=== PATIENT | female | born 1980 | race American Indian/Alaskan Native ===

== ENCOUNTER 2020-02-06 08:56 | Emergency (ER) | payer MEDICARE ==
[2020-02-06] MEDS ORDERED: LIDOCAINE VISCOUS 2% 15 ML ORAL LIQD MM NR (09:30)
[2020-02-06] MEDS ORDERED: SODIUM CHLORIDE 0.9% 1000 ML 1,000 ML ONE (09:52)
[2020-02-06] MEDS ORDERED: SODIUM CHLORIDE 0.9% 1000 ML 1,000 ML IV ONE (09:54)
--- NOTE | 2020-02-06 10:01 | Emergency Department Report ---
ED General Adult HPI - General Chief complaint: GI Bleed Stated complaint: MOUTH PAIN/HEADACHES Time Seen by Provider: 02/06/20 09:10 Source: patient, EMS Mode of arrival: Wheelchair Limitations: Physical Limitation - History of Present Illness Initial comments: This is a pleasant 39-year-old female who presents the emergency department chief complaint of dental pain and irritation to the roof of her mouth that started 3 days ago. She also reports she had some bright red blood when she wiped and had a bowel movement this morning. She denies any pain in her abdomen, fever, chills, night sweats, dizziness, blurry vision, chest pain, shortness of breath, weakness, melena, hematemesis or any other associated symptoms. She denies any blood thinner use. She has a history of hypertension and polymyositis which has left her wheelchair-bound. She receives Rituxan infusions monthly and was supposed to get one today but due to her symptoms she came to the ER instead. She reports she also takes prednisone, losartan and Norvasc. - Related Data Previous Rx's Medication Instructions Recorded Last Taken Type Chlorhexidine Mouthwash [Peridex] 15 ml MM BID #1 bottle 02/06/20 Unknown Rx Nystas/Diphen/Xyl Visc/Mylanta 30 ml MM Q4H PRN #120 ml 02/06/20 Unknown Rx [Magic Mouthwash] Allergies Allergy/AdvReac Type Severity Reaction Status Date / Time No Known Allergies Allergy Unverified 02/06/20 08:57 ED Review of Systems ROS: Stated complaint: MOUTH PAIN/HEADACHES Other details as noted in HPI Comment: All other systems reviewed and negative Constitutional: denies: chills, fever Eyes: denies: eye pain, eye discharge, vision change ENT: as per HPI, dental pain. denies: ear pain, throat pain Respiratory: denies: cough, shortness of breath, wheezing Cardiovascular: denies: chest pain, palpitations Endocrine: no symptoms reported Gastrointestinal: as per HPI, constipation, hematochezia. denies: abdominal pain, nausea, diarrhea, hematemesis, melena Genitourinary: denies: urgency, dysuria, discharge Musculoskeletal: denies: back pain, joint swelling, arthralgia Skin: denies: rash, lesions Neurological: denies: headache, weakness, paresthesias Psychiatric: denies: anxiety, depression Hematological/Lymphatic: denies: easy bleeding, easy bruising ED Past Medical Hx - Past Medical History Previous Medical History?: Yes Hx Hypertension: Yes Additional medical history: Polymyositis. extreme weakness- wheelchair bound - Surgical History Past Surgical History?: Yes Additional Surgical History: femur surgery - Family History Family history: no significant - Social History Smoking Status: Never Smoker Substance Use Type: None - Medications Home Medications: Home Medications Medication Instructions Recorded Confirmed Last Taken Type Chlorhexidine Mouthwash [Peridex] 15 ml MM BID #1 bottle 02/06/20 Unknown Rx Nystas/Diphen/Xyl Visc/Mylanta 30 ml MM Q4H PRN #120 ml 02/06/20 Unknown Rx [Magic Mouthwash] ED Physical Exam - General Limitations: Physical Limitation General appearance: alert, in no apparent distress - Head Head exam: Present: atraumatic, normocephalic - Eye Eye exam: Present: normal appearance, PERRL, EOMI Pupils: Present: normal accommodation - ENT ENT exam: Present: normal exam, mucous membranes moist, TM's normal bilaterally, other (erythema to the roof of mouth, no ulceration or edema, no abscess, trismus, peritonsillar or retropharyngeal bulging, no dysphonia or drooling). Absent: normal orophraynx - Neck Neck exam: Present: normal inspection, full ROM. Absent: tenderness, meningismus - Respiratory Respiratory exam: Present: normal lung sounds bilaterally. Absent: respiratory distress, wheezes, rales, rhonchi, stridor - Cardiovascular Cardiovascular Exam: Present: regular rate, normal rhythm, normal heart sounds. Absent: systolic murmur, diastolic murmur, rubs, gallop - GI/Abdominal GI/Abdominal exam: Present: soft, normal bowel sounds. Absent: distended, tenderness, guarding, rebound, rigid - Rectal Rectal exam: Present: heme (+) stool, other (Rectal exam chaperoned by DIMPLE Hahn) - Extremities Exam Extremities exam: Present: normal inspection, full ROM. Absent: tenderness, pedal edema, calf tenderness - Back Exam Back exam: Present: normal inspection, full ROM. Absent: tenderness - Neurological Exam Neurological exam: Present: alert, oriented X3, other (The patient has generalized weakness in the arms and legs from her chronic polymyositis. She is at her baseline per patient.) - Psychiatric Psychiatric exam: Present: normal affect, normal mood - Skin Skin exam: Present: warm, dry, intact, normal color. Absent: rash ED Course Vital Signs 02/06/20 02/06/20 08:57 09:31 Temperature 98.4 F Pulse Rate 95 H Respiratory 16 16 Rate Blood Pressure 166/96 O2 Sat by Pulse 99 98 Oximetry - Reevaluation(s) Reevaluation #1: 02/06/20 10:07 Patient is hemodynamically stable and in no acute distress. Rectal exam showed no obvious external hemorrhoids or fissures but there was heme positive stool. Her abdominal exam was benign. She had normal vitals and is nontoxic. She was given viscous lidocaine which helped with her mouth pain. ED Medical Decision Making - Lab Data Result diagrams: 02/06/20 10:00 02/06/20 10:00 Lab Results 02/06/20 02/06/20 02/06/20 Range/Units 10:00 10:00 10:00 WBC 7.0 (4.5-11.0) K/mm3 RBC 3.80 (3.65-5.03) M/mm3 Hgb 10.5 (10.1-14.3) gm/dl Hct 32.4 (30.3-42.9) % MCV 85 (79-97) fl MCH 28 (28-32) pg MCHC 32 (30-34) % RDW 16.2 H (13.2-15.2) % Plt Count 291 (140-440) K/mm3 Lymph % (Auto) 25.3 (13.4-35.0) % Swain % (Auto) 6.3 (0.0-7.3) % Eos % (Auto) 1.3 (0.0-4.3) % Baso % (Auto) 0.4 (0.0-1.8) % Lymph # (Auto) 1.8 (1.2-5.4) K/mm3 Swain # (Auto) 0.4 (0.0-0.8) K/mm3 Eos # (Auto) 0.1 (0.0-0.4) K/mm3 Baso # (Auto) 0.0 (0.0-0.1) K/mm3 Seg Neutrophils % 66.7 (40.0-70.0) % Seg Neutrophils # 4.7 (1.8-7.7) K/mm3 PT 12.7 (12.2-14.9) Sec. INR 0.96 (0.87-1.13) APTT 24.6 (24.2-36.6) Sec. Sodium 138 (137-145) mmol/L Potassium 4.4 (3.6-5.0) mmol/L Chloride 103.2 (98-107) mmol/L Carbon Dioxide 27 (22-30) mmol/L Anion Gap 12 mmol/L BUN 4 L (7-17) mg/dL Creatinine < 0.2 L (0.6-1.2) mg/dL Estimated GFR > 60 ml/min BUN/Creatinine Ratio 20 % Glucose 70 (65-100) mg/dL Calcium 8.5 (8.4-10.2) mg/dL Total Bilirubin 0.20 (0.1-1.2) mg/dL AST 74 H (5-40) units/L ALT 52 (7-56) units/L Alkaline Phosphatase 38 (35-129) units/L Total Protein 7.6 (6.3-8.2) g/dL Albumin 3.5 L (3.9-5) g/dL Albumin/Globulin Ratio 0.9 % Lipase 20 (13-60) units/L HCG, Qual (Negative) 02/06/20 Range/Units 10:00 WBC (4.5-11.0) K/mm3 RBC (3.65-5.03) M/mm3 Hgb (10.1-14.3) gm/dl Hct (30.3-42.9) % MCV (79-97) fl MCH (28-32) pg MCHC (30-34) % RDW (13.2-15.2) % Plt Count (140-440) K/mm3 Lymph % (Auto) (13.4-35.0) % Swain % (Auto) (0.0-7.3) % Eos % (Auto) (0.0-4.3) % Baso % (Auto) (0.0-1.8) % Lymph # (Auto) (1.2-5.4) K/mm3 Swain # (Auto) (0.0-0.8) K/mm3 Eos # (Auto) (0.0-0.4) K/mm3 Baso # (Auto) (0.0-0.1) K/mm3 Seg Neutrophils % (40.0-70.0) % Seg Neutrophils # (1.8-7.7) K/mm3 PT (12.2-14.9) Sec. INR (0.87-1.13) APTT (24.2-36.6) Sec. Sodium (137-145) mmol/L Potassium (3.6-5.0) mmol/L Chloride (98-107) mmol/L Carbon Dioxide (22-30) mmol/L Anion Gap mmol/L BUN (7-17) mg/dL Creatinine (0.6-1.2) mg/dL Estimated GFR ml/min BUN/Creatinine Ratio % Glucose (65-100) mg/dL Calcium (8.4-10.2) mg/dL Total Bilirubin (0.1-1.2) mg/dL AST (5-40) units/L ALT (7-56) units/L Alkaline Phosphatase (35-129) units/L Total Protein (6.3-8.2) g/dL Albumin (3.9-5) g/dL Albumin/Globulin Ratio % Lipase (13-60) units/L HCG, Qual Negative (Negative) - Medical Decision Making On reevaluation patient is feeling much better. Headache is improving. Vital signs have remained stable. Labs are unremarkable and H&H is stable BUN is nonelevated. I suspect this is likely a nonlethal source of GI bleeding. Patient was given strict return precautions for any change or worsening symptoms such as heavy bleeding, severe abdominal pain to return the emerge department really. Her abdominal exam was benign. As far as her mouth pain she did have some mucositis and I will treat her with topical lidocaine and an antibiotic rinse recommended follow-up with her doctor and return to the ER with any change or worsening symptoms. She verbalized understand the diagnosis, treatment plan and follow-up instructions and all of her questions were answered. 02/06/20 11:36 - Differential Diagnosis Mucositis, dental infection, diverticular bleed, colitis Critical care attestation.: If time is entered above; I have spent that time in minutes in the direct care of this critically ill patient, excluding procedure time. ED Disposition Clinical Impression: GI bleeding Qualifiers: GI bleed type/associated pathology: unspecified gastrointestinal hemorrhage type Qualified Code(s): K92.2 - Gastrointestinal hemorrhage, unspecified Disposition: TO HOME OR SELFCARE Is pt being admited?: No Condition: Stable Instructions: Gastrointestinal Bleeding Prescriptions: Nystas/Diphen/Xyl Visc/Mylanta [Magic Mouthwash] 30 ml MM Q4H PRN #120 ml PRN Reason: Pain , Severe (7-10) Chlorhexidine Mouthwash [Peridex] 15 ml MM BID #1 bottle Referrals: PRIMARY CARE, [Primary Care Provider] - 3-5 Days [facility] [Provider Group] - 3-5 Days Time of Disposition: 11:40
[2020-02-06 10:42] LABS: Basophils % (Auto) 0.4 % (0.0-1.8); Eosinophils # (Auto) 0.1 K/mm3 (0.0-0.4); Eosinophils % (Auto) 1.3 % (0.0-4.3); Hematocrit 32.4 % (30.3-42.9); Hemoglobin 10.5 gm/dl (10.1-14.3); Lymphocytes # (Auto) 1.8 K/mm3 (1.2-5.4); Lymphocytes % (Auto) 25.3 % (13.4-35.0); Mean Corpuscular HGB Conc 32 % (30-34); Mean Corpuscular Volume 85 fl (79-97); Monocytes # (Auto) 0.4 K/mm3 (0.0-0.8); Monocytes % (Auto) 6.3 % (0.0-7.3); Platelet Count 291 K/mm3 (140-440); Red Cell Distribution Width 16.2 % (13.2-15.2)
[2020-02-06 10:57] LABS: INR 0.96 (0.87-1.13); Partial Thromboplastin Time 24.6 Sec. (24.2-36.6)
[2020-02-06] MEDS ORDERED: METOCLOPRAMIDE 10 MG/2 ML INJ IV ONE (11:03)
[2020-02-06] MEDS ORDERED: diphenhydrAMINE 50 MG/ML VIAL IV ONE (11:03)
[2020-02-06 11:05] LABS: Alanine Aminotransferase 52 units/L (7-56); Albumin 3.5 g/dL (3.9-5); Blood Urea Nitrogen 4 mg/dL (7-17); Calcium 8.5 mg/dL (8.4-10.2); Hemolysis Index 304
[2020-02-06 11:15] LABS: BUN/Creatinine Ratio 20
[2020-02-06 15:17] VITALS: BP 150/73
== END 2020-02-06 15:13 | disposition home or self-care (01) ==
LOC: ED 08:56
DX: K92.2 Gastrointestinal hemorrhage, unspecified (principal); I10 Essential (primary) hypertension; Z98.890 Other specified postprocedural states; Z79.899 Other long term (current) drug therapy
CPT/HCPCS: 36415; 80053; 83690; 84703; 85025; 85610; 85730; 86850; 86900; 86901; 96361; 96374; 96375; 99284; J1200; J2765; J7030

== ENCOUNTER 2020-12-16 23:28 | Observation (INO) | payer MEDICARE ==
[2020-12-16] MEDS ORDERED: ASPIRIN 81 MG TAB CHEW PO ONE (23:47)
[2020-12-17 00:27] LABS: Basophils % (Auto) 0.9 % (0.0-1.8); Eosinophils # (Auto) 0.4 K/mm3 (0.0-0.4); Eosinophils % (Auto) 9.1 % (0.0-4.3); Hematocrit 36.9 % (30.3-42.9); Hemoglobin 12.1 gm/dl (10.1-14.3); Lymphocytes # (Auto) 1.1 K/mm3 (1.2-5.4); Lymphocytes % (Auto) 28.7 % (13.4-35.0); Mean Corpuscular HGB Conc 33 % (30-34); Mean Corpuscular Volume 82 fl (79-97); Monocytes # (Auto) 0.5 K/mm3 (0.0-0.8); Monocytes % (Auto) 12.4 % (0.0-7.3); Platelet Count 349 K/mm3 (140-440); Red Cell Distribution Width 17.2 % (13.2-15.2)
--- NOTE | 2020-12-17 00:29 | XRay Report ---
CHEST 1 VIEW 12/16/2020 11:02 PM INDICATION / CLINICAL INFORMATION: Chest Pain. COMPARISON: None available. FINDINGS: SUPPORT DEVICES: None. HEART / MEDIASTINUM: No significant abnormality. LUNGS / PLEURA: No significant pulmonary or pleural abnormality. No pneumothorax. ADDITIONAL FINDINGS: No significant additional findings. IMPRESSION: 1. No acute findings. Signer Name: Vinay Mcgowan MD Signed: 12/17/2020 12:24 AM Workstation Name: [id number]
[2020-12-17 00:37] LABS: INR 0.9 (0.87-1.13)
[2020-12-17 00:38] LABS: Partial Thromboplastin Time 30.2 Sec. (24.2-36.6)
[2020-12-17 00:41] LABS: Alanine Aminotransferase 39 units/L (7-56); Albumin 3.9 g/dL (3.9-5); Blood Urea Nitrogen 3 mg/dL (7-17); Calcium 9.6 mg/dL (8.4-10.2); Hemolysis Index 7
[2020-12-17 00:43] LABS: BUN/Creatinine Ratio 15
[2020-12-17] MEDS ORDERED: HYDROcodone/ACETAMINOPHEN 10-325MG TAB PO ONE (00:49)
[2020-12-17] MEDS ORDERED: ONDANSETRON 4 MG ODT TAB PO ONE (00:50)
[2020-12-17] MEDS ORDERED: SODIUM CHLORIDE IRRI 500 ML 1,000 ML IR ONE (01:20)
--- NOTE | 2020-12-17 01:34 | Emergency Department Report ---
ED General Adult HPI - General Chief complaint: Chest Pain Stated complaint: CHEST PAIN Time Seen by Provider: 12/17/20 01:01 Source: EMS Mode of arrival: Stretcher Limitations: No Limitations - History of Present Illness Initial comments: Patient presents to the emergency department the chief complaint of leg pain, arm pain, and chest pain. Patient states she has polymyositis and for the last couple days has had significant amount of pain. Patient states she is on gabapentin and Ultram at home for pain to no avail. Patient denies shortness of breath or abdominal pain. -: Gradual Location: chest, back, upper extremity, lower extremity Severity scale (0 -10): 7 Quality: sharp Consistency: constant Improves with: none Worsens with: none Associated Symptoms: denies other symptoms Treatments Prior to Arrival: none - Related Data Home Medications Medication Instructions Recorded Confirmed Last Taken Acetaminophen [Acetaminophen TAB] 500 mg PO PRN PRN 12/17/20 12/17/20 12/16/20 Ascorbic Acid/Multivit-Min 1,000 mg PO DAILY 12/17/20 12/17/20 11/26/20 [Emergen-C 1,000 mg Packet] Gabapentin 1 cap PO QHS 12/17/20 12/17/20 12/16/20 Ibuprofen [Ibu-200] 2 tab PO PRN PRN 12/17/20 12/17/20 12/16/20 Olmesartan/Hydrochlorothiazide 1 tab PO QDAY 12/17/20 12/17/20 12/16/20 [Olmesartan-Hctz 20-12.5 mg Tab] amLODIPine 1 tab PO QDAY 12/17/20 12/17/20 12/16/20 riTUXimab [Rituxan] 10 mg IV Q6M 12/17/20 12/17/20 09/16/20 traMADoL [Ultram 50 MG tab] 50 mg PO Q12H PRN 12/17/20 12/17/20 12/16/20 Previous Rx's Medication Instructions Recorded Last Taken Type predniSONE 10 mg PO .TAPER #21 tab 12/17/20 Unknown Rx Allergies Allergy/AdvReac Type Severity Reaction Status Date / Time No Known Allergies Allergy Verified 12/17/20 10:43 ED Review of Systems ROS: Stated complaint: CHEST PAIN Other details as noted in HPI Comment: All other systems reviewed and negative Constitutional: denies: chills, fever Eyes: denies: eye pain, eye discharge, vision change ENT: denies: ear pain, throat pain Respiratory: denies: cough, shortness of breath, wheezing Cardiovascular: denies: chest pain, palpitations Endocrine: no symptoms reported Gastrointestinal: denies: abdominal pain, nausea, diarrhea Genitourinary: denies: urgency, dysuria, discharge Musculoskeletal: denies: back pain, joint swelling, arthralgia Skin: denies: rash, lesions Neurological: denies: headache, weakness, paresthesias Psychiatric: denies: anxiety, depression Hematological/Lymphatic: denies: easy bleeding, easy bruising ED Past Medical Hx - Past Medical History Hx Hypertension: Yes Additional medical history: Polymyositis. extreme weakness- wheelchair bound - Surgical History Additional Surgical History: femur surgery - Social History Smoking Status: Never Smoker Substance Use Type: None - Medications Home Medications: Home Medications Medication Instructions Recorded Confirmed Last Taken Type Acetaminophen [Acetaminophen TAB] 500 mg PO PRN PRN 12/17/20 12/17/20 12/16/20 History Ascorbic Acid/Multivit-Min 1,000 mg PO DAILY 12/17/20 12/17/20 11/26/20 History [Emergen-C 1,000 mg Packet] Gabapentin 1 cap PO QHS 12/17/20 12/17/20 12/16/20 History Ibuprofen [Ibu-200] 2 tab PO PRN PRN 12/17/20 12/17/20 12/16/20 History Olmesartan/Hydrochlorothiazide 1 tab PO QDAY 12/17/20 12/17/20 12/16/20 History [Olmesartan-Hctz 20-12.5 mg Tab] amLODIPine 1 tab PO QDAY 12/17/20 12/17/20 12/16/20 History predniSONE 10 mg PO .TAPER #21 tab 12/17/20 Unknown Rx riTUXimab [Rituxan] 10 mg IV Q6M 12/17/20 12/17/20 09/16/20 History traMADoL [Ultram 50 MG tab] 50 mg PO Q12H PRN 12/17/20 12/17/20 12/16/20 History ED Physical Exam - General Limitations: No Limitations General appearance: alert, in no apparent distress - Head Head exam: Present: atraumatic, normocephalic - Eye Eye exam: Present: normal appearance, PERRL, EOMI - ENT ENT exam: Present: mucous membranes dry - Neck Neck exam: Present: normal inspection - Respiratory Respiratory exam: Present: normal lung sounds bilaterally. Absent: respiratory distress - Cardiovascular Cardiovascular Exam: Present: normal rhythm, tachycardia. Absent: systolic murmur, diastolic murmur, rubs, gallop - GI/Abdominal GI/Abdominal exam: Present: soft, normal bowel sounds. Absent: distended, tenderness - Extremities Exam Extremities exam: Present: normal inspection - Back Exam Back exam: Present: normal inspection - Neurological Exam Neurological exam: Present: alert, oriented X3, CN II-XII intact. Absent: motor sensory deficit - Psychiatric Psychiatric exam: Present: normal affect, normal mood - Skin Skin exam: Present: warm, dry, intact, normal color. Absent: rash ED Course Vital Signs 12/16/20 12/17/20 12/17/20 23:41 00:15 00:31 Temperature 99.3 F Pulse Rate 116 H 103 H 121 H Respiratory 19 22 20 Rate Blood Pressure 140/99 135/86 Blood Pressure 146/94 [Right] O2 Sat by Pulse 100 100 100 Oximetry 12/17/20 12/17/20 12/17/20 00:45 01:01 01:05 Temperature Pulse Rate 114 H 115 H Respiratory 20 20 18 Rate Blood Pressure 135/86 Blood Pressure [Right] O2 Sat by Pulse Oximetry 12/17/20 12/17/20 12/17/20 01:15 01:30 01:45 Temperature Pulse Rate 114 H 95 H Respiratory 18 20 20 Rate Blood Pressure 122/82 152/103 Blood Pressure [Right] O2 Sat by Pulse 96 Oximetry 12/17/20 12/17/20 12/17/20 02:00 02:05 04:27 Temperature Pulse Rate 90 Respiratory 25 H 18 Rate Blood Pressure 152/103 127/84 Blood Pressure [Right] O2 Sat by Pulse 98 Oximetry 12/17/20 12/17/20 12/17/20 04:31 04:32 04:45 Temperature Pulse Rate 102 H 95 H Respiratory 19 18 15 Rate Blood Pressure 127/84 127/83 Blood Pressure [Right] O2 Sat by Pulse 100 Oximetry 12/17/20 12/17/20 12/17/20 05:01 05:02 05:15 Temperature Pulse Rate 84 82 Respiratory 18 18 22 Rate Blood Pressure 152/103 127/83 Blood Pressure [Right] O2 Sat by Pulse Oximetry 12/17/20 12/17/20 12/17/20 05:31 05:45 06:01 Temperature Pulse Rate 84 89 90 Respiratory 21 24 18 Rate Blood Pressure 136/96 84/45 151/95 Blood Pressure [Right] O2 Sat by Pulse Oximetry 12/17/20 12/17/20 12/17/20 06:15 06:31 06:45 Temperature Pulse Rate 105 H 88 92 H Respiratory 19 17 24 Rate Blood Pressure 137/87 136/84 136/84 Blood Pressure [Right] O2 Sat by Pulse Oximetry 12/17/20 12/17/20 12/17/20 06:53 07:01 07:15 Temperature Pulse Rate 102 H 95 H Respiratory 18 22 23 Rate Blood Pressure 128/81 133/84 Blood Pressure [Right] O2 Sat by Pulse Oximetry 12/17/20 07:31 Temperature Pulse Rate 97 H Respiratory 18 Rate Blood Pressure 135/87 Blood Pressure [Right] O2 Sat by Pulse Oximetry ED Medical Decision Making - Lab Data Result diagrams: 12/17/20 05:39 12/17/20 05:39 Lab Results 12/17/20 12/17/20 12/17/20 Range/Units 00:03 00:03 00:03 WBC 3.9 L (4.5-11.0) K/mm3 RBC 4.50 (3.65-5.03) M/mm3 Hgb 12.1 (10.1-14.3) gm/dl Hct 36.9 (30.3-42.9) % MCV 82 (79-97) fl MCH 27 L (28-32) pg MCHC 33 (30-34) % RDW 17.2 H (13.2-15.2) % Plt Count 349 (140-440) K/mm3 Lymph % (Auto) 28.7 (13.4-35.0) % Rabun % (Auto) 12.4 H (0.0-7.3) % Eos % (Auto) 9.1 H (0.0-4.3) % Baso % (Auto) 0.9 (0.0-1.8) % Lymph # (Auto) 1.1 L (1.2-5.4) K/mm3 Rabun # (Auto) 0.5 (0.0-0.8) K/mm3 Eos # (Auto) 0.4 (0.0-0.4) K/mm3 Baso # (Auto) 0.0 (0.0-0.1) K/mm3 Seg Neutrophils % 48.9 (40.0-70.0) % Seg Neutrophils # 1.9 (1.8-7.7) K/mm3 PT 13.2 (12.2-14.9) Sec. INR 0.90 (0.87-1.13) APTT 30.2 (24.2-36.6) Sec. Sodium 139 (137-145) mmol/L Potassium 4.0 (3.6-5.0) mmol/L Chloride 94.4 L (98-107) mmol/L Carbon Dioxide 22 (22-30) mmol/L Anion Gap 27 mmol/L BUN 3 L (7-17) mg/dL Creatinine < 0.2 L (0.6-1.2) mg/dL Estimated GFR > 60 ml/min BUN/Creatinine Ratio 15 % Glucose 82 (65-100) mg/dL Calcium 9.6 (8.4-10.2) mg/dL Total Bilirubin 0.30 (0.1-1.2) mg/dL AST 39 (5-40) units/L ALT 39 (7-56) units/L Alkaline Phosphatase 44 (35-129) units/L Troponin T 0.029 (0.00-0.029) ng/mL NT-Pro-B Natriuret Pep (0-450) pg/mL Total Protein 7.4 (6.3-8.2) g/dL Albumin 3.9 (3.9-5) g/dL Albumin/Globulin Ratio 1.1 % Lipase 24 (13-60) units/L HCG, Quant (0-4) mIU/mL 12/17/20 12/17/20 Range/Units 00:03 00:03 WBC (4.5-11.0) K/mm3 RBC (3.65-5.03) M/mm3 Hgb (10.1-14.3) gm/dl Hct (30.3-42.9) % MCV (79-97) fl MCH (28-32) pg MCHC (30-34) % RDW (13.2-15.2) % Plt Count (140-440) K/mm3 Lymph % (Auto) (13.4-35.0) % Rabun % (Auto) (0.0-7.3) % Eos % (Auto) (0.0-4.3) % Baso % (Auto) (0.0-1.8) % Lymph # (Auto) (1.2-5.4) K/mm3 Rabun # (Auto) (0.0-0.8) K/mm3 Eos # (Auto) (0.0-0.4) K/mm3 Baso # (Auto) (0.0-0.1) K/mm3 Seg Neutrophils % (40.0-70.0) % Seg Neutrophils # (1.8-7.7) K/mm3 PT (12.2-14.9) Sec. INR (0.87-1.13) APTT (24.2-36.6) Sec. Sodium (137-145) mmol/L Potassium (3.6-5.0) mmol/L Chloride (98-107) mmol/L Carbon Dioxide (22-30) mmol/L Anion Gap mmol/L BUN (7-17) mg/dL Creatinine (0.6-1.2) mg/dL Estimated GFR ml/min BUN/Creatinine Ratio % Glucose (65-100) mg/dL Calcium (8.4-10.2) mg/dL Total Bilirubin (0.1-1.2) mg/dL AST (5-40) units/L ALT (7-56) units/L Alkaline Phosphatase (35-129) units/L Troponin T (0.00-0.029) ng/mL NT-Pro-B Natriuret Pep 20.34 (0-450) pg/mL Total Protein (6.3-8.2) g/dL Albumin (3.9-5) g/dL Albumin/Globulin Ratio % Lipase (13-60) units/L HCG, Quant < 2 (0-4) mIU/mL - EKG Data -: EKG Interpreted by Me EKG shows normal: sinus rhythm Rate: tachycardia - Radiology Data Radiology results: report reviewed Critical care attestation.: If time is entered above; I have spent that time in minutes in the direct care of this critically ill patient, excluding procedure time. ED Disposition Clinical Impression: Chest pain, Elevated troponin Disposition: 09 ADMITTED INPATIENT Is pt being admited?: Yes Does the pt Need Aspirin: No Condition: Fair
[2020-12-17] MEDS ORDERED: ONDANSETRON 4 MG/2 ML INJ IV ONE (01:53)
[2020-12-17] MEDS ORDERED: MORPHINE 4 MG/1 ML INJ IV ONE (01:53)
[2020-12-17] MEDS ORDERED: SODIUM CHLORIDE 0.9% 1000 ML 1,000 ML IV ONE (01:53)
[2020-12-17 03:27] LABS: Chol/HDL Ratio 3.28 %
--- NOTE | 2020-12-17 04:10 | Cat Scan Report ---
CTA CHEST WITH IV CONTRAST INDICATION: Chest, Arm and Leg pain / Tachycardic. TECHNIQUE: Axial CT images were obtained through the chest after injection of 100 cc IV contrast. 3 plane MIP re constructions were produced. All CT scans at this location are performed using CT dose reduction for ALARA by means of automated exposure control. COMPARISON: None available. FINDINGS: PULMONARY ARTERIES: No pulmonary emboli. THORACIC AORTA: No acute abnormality. HEART: Normal. CORONARY ARTERIES: No significant calcification. PLEURA: No pleural effusion. No pneumothorax. LYMPH NODES: No significant adenopathy. LUNGS: No acute air space or interstitial disease. ADDITIONAL FINDINGS: None. UPPER ABDOMEN: No acute findings. SKELETAL STRUCTURES: No significant osseous abnormality. IMPRESSION: 1. No CT evidence for pulmonary embolism. 2. No acute findings. Signer Name: Vinay Mcgowan MD Signed: 12/17/2020 4:06 AM Workstation Name: [id number]
[2020-12-17] MEDS ORDERED: ONDANSETRON 4 MG/2 ML INJ IV PRN (04:45)
[2020-12-17] MEDS ORDERED: NITROGLYCERIN 0.4 MG TAB SUBL SL PRN (04:45)
[2020-12-17] MEDS ORDERED: traMADol 50 MG TAB PO PRN ×2 (04:45→13:13)
[2020-12-17] MEDS ORDERED: MORPHINE 4 MG/1 ML INJ IV PRN ×2 (04:45)
[2020-12-17] MEDS ORDERED: MAGNESIUM HYDROXIDE (MOM) ORAL LIQD UDC PO PRN (04:45)
[2020-12-17] MEDS ORDERED: MORPHINE 2 MG/1 ML INJ IV PRN (04:45)
[2020-12-17] MEDS ORDERED: ACETAMINOPHEN 325 MG TAB PO PRN ×2 (04:45)
--- NOTE | 2020-12-17 04:55 | History and Physical Report ---
History of Present Illness Date of examination: 12/17/20 Date of admission: 12/17/2020 Chief complaint: Chest Pain History of present illness: 40-year-old female with known history of polymyositis presents to the emergency room today with multiple medical complaints including mainly lower extremity and and pain and significantly chest pain which has been ongoing for the past few days. Patient states she has been taking analgesic medication including Ultram and gabapentin with no significant improvement. She denies any fever or chills and denies any shortness of breath. She denies any headache or dizziness and denies any diaphoresis. She denies any nausea vomiting and no abdominal pain. Patient indicates that she is wheelchair-bound because of her polymyositis. She denies any sick contacts and no recent travel. Denies any contact with anyone with COVID-19. Upon arrival in the emergency room patient was quite tachycardic with heart rate in the low 100s. Work-up in the emergency room today, chest x-ray and CT angiogram of the chest were unremarkable. Labs were significant for slightly elevated troponin of 0.03. EKG was unremarkable. Patient is being admitted for chest pain evaluation. Past History Past Medical History: hypertension, other (Polymyositis) Past Surgical History: Other (Femur Surgery) Social history: no significant social history Family history: no significant family history Medications and Allergies Allergies Allergy/AdvReac Type Severity Reaction Status Date / Time No Known Allergies Allergy Unverified 02/06/20 08:57 Home Medications Medication Instructions Recorded Confirmed Last Taken Type Chlorhexidine Mouthwash [Peridex] 15 ml MM BID #1 bottle 02/06/20 Unknown Rx Nystas/Diphen/Xyl Visc/Mylanta 30 ml MM Q4H PRN #120 ml 02/06/20 Unknown Rx [Magic Mouthwash] Active Meds: Active Medications Acetaminophen (Acetaminophen 325 Mg Tab) 650 mg PO Q4H PRN PRN Reason: Pain MILD(1-3)/Fever >100.5/SAUCEDO Acetaminophen (Acetaminophen 325 Mg Tab) 650 mg PO Q6H PRN PRN Reason: Pain, Mild (1-3) Aspirin (Aspirin Ec 325 Mg Tab) 325 mg PO QDAY RAMBO Magnesium Hydroxide (Magnesium Hydroxide (Mom) Oral Liqd Udc) 30 ml PO Q4H PRN PRN Reason: Constipation Morphine Sulfate (Morphine 2 Mg/1 Ml Inj) 2 mg IV Q4H PRN PRN Reason: Pain, Moderate (4-6) Morphine Sulfate (Morphine 4 Mg/1 Ml Inj) 4 mg IV Q4H PRN PRN Reason: Pain , Severe (7-10) Morphine Sulfate (Morphine 4 Mg/1 Ml Inj) 2 mg IV Q5MIN PRN PRN Reason: Chest Pain unrelieved by NTG Nitroglycerin (Nitroglycerin 0.4 Mg Tab Subl) 0.4 mg SL Q5M PRN PRN Reason: Chest Pain Ondansetron HCl (Ondansetron 4 Mg/2 Ml Inj) 4 mg IV Q8H PRN PRN Reason: Nausea And Vomiting Sodium Chloride (Sodium Chloride 0.9% 10 Ml Flush Syringe) 10 ml IV BID RAMBO Sodium Chloride (Sodium Chloride 0.9% 10 Ml Flush Syringe) 10 ml IV PRN PRN PRN Reason: LINE FLUSH Sodium Chloride (Sodium Chloride 0.9% 10 Ml Flush Syringe) 10 ml IV PRN PRN PRN Reason: LINE FLUSH Tramadol HCl (Tramadol 50 Mg Tab) 50 mg PO Q6H PRN PRN Reason: Pain, Moderate (4-6) Review of Systems Constitutional: no fever, no chills Ears, nose, mouth and throat: no nasal congestion, no sore throat Cardiovascular: chest pain, palpitations Respiratory: no cough, no shortness of breath Gastrointestinal: no abdominal pain, no nausea, no vomiting, no diarrhea Genitourinary Female: no pelvic pain, no flank pain, no dysuria, no hematuria Musculoskeletal: low back pain, no neck pain Integumentary: no rash, no pruritis Neurological: no headaches, no confusion Psychiatric: no anxiety, no depression Endocrine: no polyphagia, no polydipsia, no polyuria, no nocturia Exam - Constitutional Vitals: Temp Pulse Resp BP Pulse Ox 99.3 F 95 H 15 127/83 100 12/16/20 23:41 12/17/20 04:45 12/17/20 04:45 12/17/20 04:45 12/17/20 04:31 General appearance: Present: no acute distress, well-nourished - EENT Eyes: Present: PERRL, EOM intact. Absent: scleral icterus ENT: hearing intact, clear oral mucosa, dentition normal - Neck Neck: Present: supple, normal ROM - Respiratory Respiratory effort: normal Respiratory: bilateral: CTA - Cardiovascular Rhythm: regular Heart Sounds: Present: S1 & S2. Absent: gallop, systolic murmur, diastolic murm ur, rub, click - Extremities Extremities: no ischemia, pulses intact, pulses symmetrical, No edema, normal temperature, normal color, Full ROM Peripheral Pulses: within normal limits - Abdominal General gastrointestinal: Present: soft, non-tender, non-distended, normal bowel sounds. Absent: mass - Integumentary Integumentary: Present: clear, warm, dry. Absent: rash - Musculoskeletal Musculoskeletal: strength equal bilaterally - Psychiatric Psychiatric: appropriate mood/affect, intact judgment & insight, memory intact, cooperative - Neurologic Neurologic: CNII-XII intact, no focal deficits, moves all extremities HEART Score - HEART Score History: Slightly suspicious EKG: Non-specific Age: < 45 Risk factors: 1-2 risk factors Troponin: Troponin T 0.030 ng/mL (0.00-0.029) H 12/17/20 01:45 Troponin: 1-3x normal limit HEART Score: 3 Results - Labs CBC & Chem 7: 12/17/20 05:39 12/17/20 05:39 Labs: Abnormal lab results 12/17/20 12/17/20 12/17/20 Range/Units 00:03 00:03 01:45 WBC 3.9 L (4.5-11.0) K/mm3 MCH 27 L (28-32) pg RDW 17.2 H (13.2-15.2) % [place] % (Auto) 12.4 H (0.0-7.3) % Eos % (Auto) 9.1 H (0.0-4.3) % Lymph # (Auto) 1.1 L (1.2-5.4) K/mm3 Chloride 94.4 L (98-107) mmol/L BUN 3 L (7-17) mg/dL Creatinine < 0.2 L (0.6-1.2) mg/dL Troponin T 0.030 H (0.00-0.029) ng/mL Cholesterol 210 H (50-199) mg/dL HDL Cholesterol 64 H (40-59) mg/dL Assessment and Plan - Patient Problems (1) Chest pain Current Visit: Yes Status: Acute Plan to address problem: Patient admitted and placed on telemetry. We will check serial cardiac enzymes. Will await further evaluation by cardiology. (2) Elevated troponin Current Visit: Yes Status: Acute Plan to address problem: We will check serial troponin levels Await evaluation by cardiology. (3) DVT prophylaxis Current Visit: Yes Status: Acute Plan to address problem: Patient placed on subcutaneous heparin. (4) Full code status Current Visit: Yes Status: Acute Plan to address problem: Patient is full code.
[2020-12-17 06:09] LABS: Basophils % (Auto) 0.3 % (0.0-1.8); Eosinophils % (Auto) 0.3 % (0.0-4.3); Hematocrit 33.8 % (30.3-42.9); Hemoglobin 10.9 gm/dl (10.1-14.3); Lymphocytes # (Auto) 0.7 K/mm3 (1.2-5.4); Lymphocytes % (Auto) 8.1 % (13.4-35.0); Mean Corpuscular HGB Conc 32 % (30-34); Mean Corpuscular Volume 83 fl (79-97); Monocytes # (Auto) 0.4 K/mm3 (0.0-0.8); Monocytes % (Auto) 4.8 % (0.0-7.3); Platelet Count 296 K/mm3 (140-440); Red Blood Count 4.08 M/mm3 (3.65-5.03); Red Cell Distribution Width 17.1 % (13.2-15.2)
[2020-12-17 06:29] LABS: BUN/Creatinine Ratio 15; Blood Urea Nitrogen 3 mg/dL (7-17); Calcium 8.5 mg/dL (8.4-10.2); Hemolysis Index 5
[2020-12-17] MEDS ORDERED: HEPARIN 5,000 UNIT/1 ML VIAL SUB-Q SCH (09:00)
--- NOTE | 2020-12-17 12:33 | Consultation ---
History of Present Illness Consult date: 12/17/20 Consult reason: elevated troponin History of present illness: The patient is a 40-year-old woman who has a history of polymyositis, which has progressed to generalized muscle weakness, and has left her wheelchair-bound for the past 5 years. 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 She states that she was recently weaned off prednisone and was doing well until the last several days when she developed generalized muscle aches and increased weakness, which prompted her to come to the emergency room for further evaluation. Part of her symptom complex of weakness included her legs, arms thorax and back, and on report of chest pain and tightness there was the commencement of cardiac work-up in the emergency room. EKG was normal sinus rhythm, normal ECG. Laboratory exam included measurement of troponin level that was borderline at 0.03. This prompted a cardiology consultation. The patient at this time is comfortable, generalized musculoskeletal pain has resolved with analgesic medications. She is breathing comfortably, with no chest pain, no palpitations, no edema. There is no prior cardiac history. Past medical history includes chronic hypertension which is well controlled on oral medications. Past History Past Medical History: hypertension, other (Polymyositis) Past Surgical History: Other (Femur Surgery) Social history: no significant social history Family history: no significant family history Medications and Allergies Allergies Allergy/AdvReac Type Severity Reaction Status Date / Time No Known Allergies Allergy Verified 12/17/20 10:43 Home Medications Medication Instructions Recorded Confirmed Last Taken Type Acetaminophen [Tylenol] 500 mg PO PRN PRN 12/17/20 12/17/20 12/16/20 History Ascorbic Acid/Multivit-Min 1,000 mg PO DAILY 12/17/20 12/17/20 11/26/20 History [Emergen-C 1,000 mg Packet] Gabapentin 1 cap PO QHS 12/17/20 12/17/20 12/16/20 History Ibuprofen [Ibu-200] 2 tab PO PRN PRN 12/17/20 12/17/20 12/16/20 History Olmesartan/Hydrochlorothiazide 1 tab PO QDAY 12/17/20 12/17/20 12/16/20 History [Olmesartan-Hctz 20-12.5 mg Tab] amLODIPine 1 tab PO QDAY 12/17/20 12/17/20 12/16/20 History riTUXimab [Rituxan] 10 mg IV Q6M 12/17/20 12/17/20 09/16/20 History traMADoL [Ultram] 50 mg PO Q12H PRN 12/17/20 12/17/20 12/16/20 History Active Meds: Active Medications Acetaminophen (Acetaminophen 325 Mg Tab) 650 mg PO Q4H PRN PRN Reason: Pain MILD(1-3)/Fever >100.5/SAUCEDO Aspirin (Aspirin Ec 325 Mg Tab) 325 mg PO QDAY RAMBO Heparin Sodium (Porcine) (Heparin 5,000 Unit/1 Ml Vial) 5,000 unit SUB-Q Q8HR RAMBO Magnesium Hydroxide (Magnesium Hydroxide (Mom) Oral Liqd Udc) 30 ml PO Q4H PRN PRN Reason: Constipation Morphine Sulfate (Morphine 2 Mg/1 Ml Inj) 2 mg IV Q4H PRN PRN Reason: Pain, Moderate (4-6) Last Admin: 12/17/20 09:47 Dose: 2 mg Documented by: Morphine Sulfate (Morphine 4 Mg/1 Ml Inj) 4 mg IV Q4H PRN PRN Reason: Pain , Severe (7-10) Last Admin: 12/17/20 06:53 Dose: 4 mg Documented by: Morphine Sulfate (Morphine 4 Mg/1 Ml Inj) 2 mg IV Q5MIN PRN PRN Reason: Chest Pain unrelieved by NTG Nitroglycerin (Nitroglycerin 0.4 Mg Tab Subl) 0.4 mg SL Q5M PRN PRN Reason: Chest Pain Ondansetron HCl (Ondansetron 4 Mg/2 Ml Inj) 4 mg IV Q8H PRN PRN Reason: Nausea And Vomiting Sodium Chloride (Sodium Chloride 0.9% 10 Ml Flush Syringe) 10 ml IV BID RAMBO Sodium Chloride (Sodium Chloride 0.9% 10 Ml Flush Syringe) 10 ml IV PRN PRN PRN Reason: LINE FLUSH Tramadol HCl (Tramadol 50 Mg Tab) 50 mg PO Q6H PRN PRN Reason: Pain, Moderate (4-6) Review of Systems Cardiovascular: chest pain, shortness of breath, no orthopnea, no palpitations, no rapid/irregular heart beat, no edema, no syncope, no lightheadedness Physical Examination Vital Signs Temp Pulse Resp BP Pulse Ox 99.3 F 116 H 19 146/94 100 12/16/20 23:41 12/16/20 23:41 12/16/20 23:41 12/16/20 23:41 12/16/20 23:41 General appearance: no acute distress HEENT: Positive: PERRL Neck: Positive: neck supple Cardiac: Positive: Reg Rate and Rhythm Lungs: Positive: clear to auscultation Neuro: Positive: Grossly Intact Abdomen: Positive: Soft Female genitourinary: deferred Skin: Positive: Clear Extremities: Absent: edema Results 12/17/20 05:39 12/17/20 05:39 Cardiac Enzymes 12/17/20 Range/Units 00:03 AST 39 (5-40) units/L Coagulation 12/17/20 Range/Units 00:03 PT 13.2 (12.2-14.9) Sec. INR 0.90 (0.87-1.13) APTT 30.2 (24.2-36.6) Sec. Lipids 12/17/20 Range/Units 01:45 Triglycerides 114 (2-149) mg/dL Cholesterol 210 H (50-199) mg/dL HDL Cholesterol 64 H (40-59) mg/dL Cholesterol/HDL Ratio 3.28 % CBC 12/17/20 12/17/20 Range/Units 00:03 05:39 WBC 3.9 L 8.3 (4.5-11.0) K/mm3 RBC 4.50 4.08 (3.65-5.03) M/mm3 Hgb 12.1 10.9 (10.1-14.3) gm/dl Hct 36.9 33.8 (30.3-42.9) % Plt Count 349 296 (140-440) K/mm3 Lymph # (Auto) 1.1 L 0.7 L (1.2-5.4) K/mm3 [place] # (Auto) 0.5 0.4 (0.0-0.8) K/mm3 Eos # (Auto) 0.4 0.0 (0.0-0.4) K/mm3 Baso # (Auto) 0.0 0.0 (0.0-0.1) K/mm3 Comprehensive Metabolic Panel 12/17/20 12/17/20 Range/Units 00:03 05:39 Sodium 139 137 (137-145) mmol/L Potassium 4.0 4.0 (3.6-5.0) mmol/L Chloride 94.4 L 100.1 (98-107) mmol/L Carbon Dioxide 22 19 L (22-30) mmol/L BUN 3 L 3 L (7-17) mg/dL Creatinine < 0.2 L < 0.2 L (0.6-1.2) mg/dL Glucose 82 82 (65-100) mg/dL Calcium 9.6 8.5 (8.4-10.2) mg/dL AST 39 (5-40) units/L ALT 39 (7-56) units/L Alkaline Phosphatase 44 (35-129) units/L Total Protein 7.4 (6.3-8.2) g/dL Albumin 3.9 (3.9-5) g/dL EKG interpretations - Telemetry EKG Rhythm: Sinus Rhythm Assessment and Plan - Patient Problems (1) Musculoskeletal pain Current Visit: Yes Status: Acute Plan to address problem: Patient with a long history of polymyositis who presents with generalized musculoskeletal pain and low-grade pyrexia of 99.3 Fahrenheit, presentation suggests a likely exacerbation of underlying polymyositis. There is no further cardiac work-up indicated for musculoskeletal pain. We will follow on a as needed basis.
[2020-12-17] MEDS ORDERED: IBUPROFEN 200 MG TAB PO PRN (13:13)
[2020-12-17] MEDS ORDERED: ACETAMINOPHEN 500 MG TAB PO PRN (13:13)
[2020-12-17] MEDS ORDERED: RITUXIMAB 10 MG/ML IV SCH (13:15)
[2020-12-17] MEDS ORDERED: methylPREDNISolone Sod Succinate 40 MG/1 ML INJ IV SCH (14:00)
--- NOTE | 2020-12-17 15:06 | Discharge Summary ---
Providers - Providers Date of Admission: 12/17/20 04:45 Date of discharge: 12/17/20 Attending physician: WILLIAM ELDRIDGE 12/17/20 Consult to Cardiac Rehabilitation [CONS] Routine Reason For Exam: Phase I 12/17/20 04:45 Consult to Cardiology [CONS] Routine Consulting Provider: DEVAN DIALLO Reason For Exam: Chest pain, Elevated Troponin 12/17/20 11:50 Physical Therapy Evaluation and Treat [CONS] Routine Comment: Reason For Exam: Eval and Treat Primary care physician: GALLERY DIRECTOR Hospitalization Condition: Fair Pertinent studies: Chest x-ray, chest CTA Hospital course: The patient is a 40-year-old woman who has a history of polymyositis, which has progressed to generalized muscle weakness, and has left her wheelchair-bound for the past 5 years, 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 She states that she was recently weaned off prednisone and was doing well until the last several days when she developed generalized muscle aches and increased weakness, which prompted her to come to the emergency room for further evaluation. She also c/o chest pain, cardiac work-up initiated in the emergency room. EKG was normal sinus rhythm, troponin level that was borderline at 0.03. CTA chest showed no PE. Cardiology was consulted and recommended no further cardiac work-up. Patient was reinitiated on tapering dose of prednisone and was recommended to follow-up with her fuel cell designer. Patient was clinically stable and was discharged home in stable condition with outpatient follow-up. Disposition: 01 HOME / SELF CARE / HOMELESS Final Discharge Diagnosis (Prints w/discharge instructions): --Musculoskeletal pain. --History of polymyositis. --Elevated troponin, nonspecific, trended down. --Wheelchair-bound Time spent for discharge: 34 minutes Core Measure Documentation - Palliative Care Palliative Care/ Comfort Measures: Not Applicable - Core Measures Any of the following diagnoses?: none Exam - Physical Exam Narrative exam: General appearance: no acute distress HEENT: Positive: PERRL Neck: Positive: neck supple Cardiac: Positive: Reg Rate and Rhythm Lungs: Positive: clear to auscultation Neuro: Positive: Grossly Intact Abdomen: Positive: Soft Female genitourinary: deferred Skin: Positive: Clear Extremities: Absent: edema - Constitutional Vitals: Temp Pulse Resp BP Pulse Ox 98 F 88 18 136/85 100 12/17/20 09:33 12/17/20 09:33 12/17/20 07:31 12/17/20 09:33 12/17/20 04:31 Plan Activity: fall precautions Weight Bearing Status: Non-Weight Bearing Diet: low fat, low salt Additional Instructions: Follow-up with your fuel cell designer at [place] by this week Follow up with: PRIMARY CAREMD [Primary Care Provider] - 3-5 Days Prescriptions: predniSONE 10 mg PO .TAPER #21 tab
[2020-12-17 16:53] VITALS: BP 112/79
[2020-12-17] MEDS ORDERED: GABAPENTIN 300 MG CAP PO SCH (22:00)
[2020-12-18] MEDS ORDERED: amLODIPine 5 MG TAB PO SCH (10:00)
[2020-12-18] MEDS ORDERED: MULTIVIT MIN PO SCH (10:00)
[2020-12-18] MEDS ORDERED: ASPIRIN EC 325 MG TAB PO SCH (10:00)
[2020-12-18] MEDS ORDERED: [UNRECOGNIZED DRUG - OTHER] PO SCH (10:00)
[2020-12-18] MEDS ORDERED: ASCORBIC ACID PO SCH (10:00)
--- NOTE | 2020-12-23 14:33 | Electrocardiograph Report ---
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
--- NOTE | 2020-12-23 14:37 | Electrocardiograph Report ---
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
== END 2020-12-17 19:38 | disposition home or self-care (01) ==
LOC: ED 23:28 → 4A 12-17 04:45
PROVIDERS: ADMIT Internal Medicine Geriatric Medicine; ATTEND Internal Medicine
DX: R07.89 Other chest pain (principal); I10 Essential (primary) hypertension; M33.20 Polymyositis, organ involvement unspecified; G70.9 Myoneural disorder, unspecified; M25.59 Pain in other specified joint; R77.8 Other specified abnormalities of plasma proteins; Z98.890 Other specified postprocedural states; Z79.899 Other long term (current) drug therapy; Z79.82 Long term (current) use of aspirin
CPT/HCPCS: 36415; 71045; 71275; 80053; 80061; 83690; 83880; 84484; 84702; 85025; 85610; 85730; 93005; 96361; 96372; 96374; 96375; 96376; 97163; 99285; G0378; J1644; J2270; J2405; J7030; Q9967; 80048; Q0162